=== PATIENT | female | born 1980 | race Caucasian/White ===

== ENCOUNTER 2025-07-25 22:50 | Emergency (ER) | payer BC, MEDICAID, SELFPAY ==
--- OUTSIDE RECORDS SUMMARY | 2025-07-25 23:01 | XMS_ITS | Clinical Summary ---
Author Organization [facility] Address [address] [address] Care Team Providers Care Optical Fabricator Name Role Phone Senait Sandoval MD Primary Care Provider [phone] Allergies Active Allergy Reactions Criticality Noted Date Comments Terbutaline Unknown 08/23/2016 Medications zolpidem (AMBIEN) 10 mg tabletIndication s:Insomnia, unspecified type Take 1 tablet (10 mg total) by mouth nightly as needed for sleep. 30 tablet 2 7 Active Additional Information Patient not taking.Reported on 08/16/2023 hydrOXYzine (VISTARIL) 25 MG capsule Take 25 mg by mouth nightly. 3 Active sertraline (ZOLOFT) 100 MG tablet Take 100 mg by mouth in the morning. 3 Active docusate sodium (COLACE) 100 MG capsule Take by mouth daily. 3 Active Active Problems Problem Noted Date Diagnosed Date Depression 07/10/2017 Assessment & Plan (07/18/2023 10:41 AM DEPUTY MANAGER): Keep follow-up with [facility]. Denies suicidal ideations. Continue current dose of sertraline Insomnia ADD (attention deficit disorder) Heart palpitations Chest wall pain Fatigue Abdominal pain, left upper quadrant Immunizations Immunization Administration Dates Next Due Td (adult) (TDVAX) 03/14/2012 Family History Medical History Relation Name Comments Cancer Father Diabetes Mother Relation Name Status Comments Father Mother Social History Tobacco Use Types Packs/Day Years Used Date Smoking Tobacco: Former Smokeless Tobacco: Never Tobacco Cessation:Counseling Given: Not Answered Alcohol Use Standard Drinks/Week Comments No 0 (1 standard drink = 0.6 oz pur e alcohol) PHQ-2 Answer Date Recorded PHQ-2 Score 0 08/16/2023 Comments No Sex and Gender Information Value Date Recorded Sex Assigned at Not on file Legal Sex Female 8:33 PM CDT Gender Identity Not on file Sexual Orientation Not on file Last Filed Vital Signs Vital Sign Reading Time Taken Comments Blood Pressure 130/87 08/16/2023 8:05 AM DEPUTY MANAGER Pulse 100 08/16/2023 8:05 AM DEPUTY MANAGER Temperature 37.2 C (98.9 F) 08/16/2023 8:05 AM DEPUTY MANAGER Respiratory Rate 18 04/21/2017 1:31 PM CDT Oxygen Saturation 98% 08/16/2023 8:05 AM DEPUTY MANAGER Inhaled Oxygen Concentration - - Weight 69.9 kg (154 lb) 08/16/2023 8:05 AM DEPUTY MANAGER Height 162.6 cm (5' 4 ) 08/16/2023 8:05 AM DEPUTY MANAGER Body Mass Index 26.43 08/16/2023 8:05 AM DEPUTY MANAGER Plan of Treatment Health Maintenance Due Date Last Done Comments Annual Wellness 1980 Varicella Vaccines (1 of 2 - 13+ 2-dose series) 1993 Hepatitis B Vaccines (1 of 3 - 19+ 3-dose series) 12/26/1999 Pap Smear 2001 Mammogram 2020 Td, Tdap Vaccines Adult 03/14/2022 03/14/20 12, 10/23/2011 Influenza Vaccination (#1) 2025 HIB Vaccines Aged Out No longer eligi ble based on patient's age to complete this topic HPV Vaccines (No Doses Required) Completed Hepatitis A Vaccines Aged Out No long er eligible based on patient's age to complete this topic IPV Vaccines Aged Out No longer eligi ble based on patient's age to complete this topic Meningococcal Vaccines Aged Out No lo nger eligible based on patient's age to complete this topic Pneumococcal Vaccine: Pediatrics (0 to 5 Years) and At-Risk Patients (6 to 49 Years) Aged Out No longer eligible b ased on patient's age to complete this topic RSV Mab Nirsevimab (Beyfortu s) <20 months Aged Out No longer eligible b ased on patient's age to complete this topic Rotavirus Vaccines Aged Out No longer eligible based on patient's age to complete this topic Insurance [facility] Care Teams Optical Fabricator Relationship Specialty Start Date End Date Senait Sandoval MD [address] [address] PCP - General Family Medicine 07/03/17
--- OUTSIDE RECORDS SUMMARY | 2025-07-25 23:01 | XMS_ITS | Encounter Summary ---
Author Organization [facility] Address [address] [place] [facility] [address] Care Team Providers Care Mexican Food Machine Tender Name Role Phone Senait Sandoval MD Primary Care Provider Encounter Details Date Type Department Care Team (Late st Contact Info) Description 07/25/2016 Orders Only [facility] Radiology [address] [place] [address] System, Provider Not In, [address] [place] [address] Social History Tobacco Use Types Packs/Day Years Used Date Smoking Tobacco: Never Assessed Comments Unknown Sex and Gender Information Value Date Recorded Sex Assigned at Not on file Legal Sex Female 8:33 PM CDT Gender Identity Not on file Sexual Orientation Not on file documented as of this encounter Plan of Treatment Not on file documented as of this encounter Procedures Procedure Name Priority Date/Time Associated Diagnosis Comments OUTSIDE IMAGES 07/25/2016 1:12 PM SWEATBAND SEPARATOR documented in this encounter Results * Outside Images (07/25/2016 1:12 PM SWEATBAND SEPARATOR) Anatomical Region Laterality Modality N/A Radiographic Rocio ging 07/25/2016 1:12 PM SWEATBAND SEPARATOR Narrative 07/25/2016 1:12 PM SWEATBAND SEPARATOR Historic images from [facility] exist and can be viewed by using the hyperlink to access [employer] pacs: X-Ray, Chest, PA & Lateral Procedure Note System, Provider Not In, - 08/13/2018 Historic images from [facility] exist and can be viewed by using thehyperlink to access [employer] pacs: X-Ray, Chest, PA & Lateral us Provider Not In System MD [facility] Final Result documented in this encounter Visit Diagnoses Not on filedocumented in this encounter Care Teams Mexican Food Machine Tender Relationship Specialty Start Date End Date Senait Sandoval MD [address] [place] [address] PCP - General Family Medicine 07/03/17 documented as of this encounter
--- OUTSIDE RECORDS SUMMARY | 2025-07-25 23:01 | XMS_ITS | Encounter Summary ---
Author Organization [facility] Address [address] [place] [address] Care Team Providers Care Radiotelegraph Operator Servicer Name Role Phone Senait Sandoval MD Primary Care Provider [phone] Encounter Details Date Type Department Care Team (Late st Contact Info) Description 01/28/2019 Orders Only [facility] Radiology [address] [place] [address] System, Provider Not In, [address] [place] [address] Social History Tobacco Use Types Packs/Day Years Used Date Smoking Tobacco: Former Smokeless Tobacco: Never Alcohol Use Standard Drinks/Week Comments No 0 (1 standard drink = 0.6 oz pur e alcohol) Comments No Sex and Gender Information Value Date Recorded Sex Assigned at Not on file Legal Sex Female 8:33 PM CDT Gender Identity Not on file Sexual Orientation Not on file documented as of this encounter Plan of Treatment Not on file documented as of this encounter Procedures Procedure Name Priority Date/Time Associated Diagnosis Comments OUTSIDE IMAGES 01/28/2019 10:06 AM CDT documented in this encounter Results * Outside Images (01/28/2019 10:06 AM CDT) Anatomical Region Laterality Modality N/A Radiographic Rocio ging 01/28/2019 10:0 6 AM CDT Narrative 01/28/2019 10:06 AM CDT Historic images from [facility] exist and can be viewed by using the hyperlink to access [employer] pacs: CT HEAD WO Procedure Note System, Provider Not InMD - 08/31/2020 Historic images from [facility] exist and can be viewed byusing the hyperlink to access [employer] pacs: CT HEAD WO us Provider Not In System MD [facility] Final Result documented in this encounter Visit Diagnoses Not on filedocumented in this encounter Care Teams Radiotelegraph Operator Servicer Relationship Specialty Start Date End Date Senait Sandoval MD [address] [place] [address] [place] [address] PCP - General Family Medicine 07/03/17 documented as of this encounter
--- OUTSIDE RECORDS SUMMARY | 2025-07-25 23:01 | XMS_ITS | Encounter Summary ---
Author Organization [facility] Address [address] [place] [facility] [place] [address] Care Team Providers Care Surgical Scrub Technician Name Role Phone Senait Sandoval MD Primary Care Provider [phone] Encounter Details Date Type Department Care Team (Late st Contact Info) Description 08/31/2015 Orders Only [facility] Radiology [address] [place] [address] System, Provider Not In, [address] [place] [address] Social History Tobacco Use Types Packs/Day Years [...] Priority Date/Time Associated Diagnosis Comments OUTSIDE IMAGES 08/31/2015 8:52 AM MUTUEL CASHIER documented in this encounter Results * Outside Images (08/31/2015 8:52 AM MUTUEL CASHIER) Anatomical Region Laterality Modality N/A Radiographic Rocio ging 08/31/2015 8:52 AM MUTUEL CASHIER Narrative 08/31/2015 8:52 AM MUTUEL CASHIER Historic images from [facility] exist and can be viewed by using the hyperlink to access [employer] pacs: US PELVIC Procedure Note System, Provider Not In - 08/27/2020 Historic images from [facility] exist and can be viewed byusing the hyperlink to access [employer] pacs: US PELVIC us Provider Not In System MD [facility] Final Result documented in this encounter Visit Diagnoses Not on filedocumented in this encounter Care Teams Surgical Scrub Technician Relationship Specialty Start Date End Date Senait Sandoval MD [address] [address] PCP - General Family Medicine 07/03/17 documented as of this encounter
--- OUTSIDE RECORDS SUMMARY | 2025-07-25 23:01 | XMS_ITS | Encounter Summary ---
Author Organization [facility] Address [address] [place] [facility] [place] [address] Care Team Providers Care Military Professional Name Role Phone Senait Sandoval MD Primary Care Provider [phone] Encounter Details Date Type Department Care Team (Late st Contact Info) Description 07/10/2016 Orders Only [facility] Radiology [address] [place] [address] System, Provider Not In, [address] [place] [address] Social History Tobacco Use Types Packs/Day Years [...] Priority Date/Time Associated Diagnosis Comments OUTSIDE IMAGES 07/10/2016 10:12 AM DEPARTMENT STORE DOOR GREETER documented in this encounter Results * Outside Images (07/10/2016 10:12 AM DEPARTMENT STORE DOOR GREETER) Anatomical Region Laterality Modality N/A Radiographic Rocio ging 07/10/2016 10:1 2 AM DEPARTMENT STORE DOOR GREETER Narrative 07/10/2016 10:12 AM DEPARTMENT STORE DOOR GREETER Historic images from [facility] exist and can be viewed by using the hyperlink to access [employer] pacs: X-Ray, Rib, Unilateral Procedure Note System, Provider Not In, - 08/13/2018 Historic images from [facility] exist and can be viewed by using thehyperlink to access [employer] pacs: X-Ray, Rib, Unilateral us Provider Not In System MD [facility] Final Result documented in this encounter Visit Diagnoses Not on filedocumented in this encounter Care Teams Military Professional Relationship Specialty Start Date End Date Senait Sandoval MD [address] [address] PCP - General Family Medicine 07/03/17 documented as of this encounter
--- OUTSIDE RECORDS SUMMARY | 2025-07-25 23:01 | XMS_ITS | Encounter Summary ---
Author Organization [facility] Address [address] [place] [address] Care Team Providers Care Curling Machine Operator Name Role Phone Senait Sandoval MD Primary Care Provider [phone] Encounter Details Date Type Department Care Team (Late st Contact Info) Description 01/28/[address] [facility] Radiology [address] [place] [address] System, Provider Not In, [address] [place] [address] Social History Tobacco Use Types Packs/Day Years [...] Date/Time Associated Diagnosis Comments OUTSIDE IMAGES 01/28/2019 10:12 AM CDT documented in this encounter Results * Outside Images (01/28/2019 10:12 AM CDT) Anatomical Region Laterality Modality N/A Radiographic Rocio ging 01/28/2019 10:1 2 AM CDT Narrative 01/28/2019 10:12 AM CDT Historic images from [facility] exist and can be viewed by using the hyperlink to access [employer] pacs: CT CHEST WO Procedure Note System, Provider Not InMD - 08/31/2020 Historic images from [facility] exist and can be viewed byusing the hyperlink to access [employer] pacs: CT CHEST WO us Provider Not In System MD [facility] Final Result documented in this encounter Visit Diagnoses Not on filedocumented in this encounter Care Teams Curling Machine Operator Relationship Specialty Start Date End Date Senait Sandoval MD [address] [place] [address] [place] [address] PCP - General Family Medicine 07/03/17 documented as of this encounter
--- OUTSIDE RECORDS SUMMARY | 2025-07-25 23:01 | XMS_ITS | Encounter Summary ---
Author Organization [facility] Address [address] [place] [address] Care Team Providers Care Acting Professor Name Role Phone Senait Sandoval MD Primary Care Provider [phone] Encounter Details Date Type Department Care Team (Late st Contact Info) Description 01/28/2019 Orders Only [facility] Radiology [address] [place] [address] System, Provider Not In, [address] [place] [address] Social History Tobacco Use Types Packs/Day Years [...] 01/28/2019 10:06 AM CDT Historic images from [facility] exist and can be viewed by using the hyperlink to access [employer] pacs: CT FACIAL SINUS WO Procedure Note System, Provider Not In, - 08/31/2020 Historic images from [facility] exist and can be viewed byusing the hyperlink to access [employer] pacs: CT FACIAL SINUS WO us Provider Not In System MD [facility] Final Result documented in this encounter Visit Diagnoses Not on filedocumented in this encounter Care Teams Acting Professor Relationship Specialty Start Date End Date Senait Sandoval MD [address] [place] [address] PCP - General Family Medicine 07/03/17 documented as of this encounter
--- OUTSIDE RECORDS SUMMARY | 2025-07-25 23:01 | XMS_ITS | Encounter Summary ---
Author Organization [facility] Address [address] [place] [address] Care Team Providers Care Video Arcade Manager Name Role Phone Senait Sandoval MD Primary Care Provider [phone] Encounter Details Date Type Department Care Team (Late st Contact Info) Description 01/28/2019 Orders Only [facility] Radiology [address] [place] [address] System, Provider Not In, [address] [place] [address] Social History Tobacco Use Types Packs/Day Years [...] Date/Time Associated Diagnosis Comments OUTSIDE IMAGES 01/28/2019 10:05 AM CDT documented in this encounter Results * Outside Images (01/28/2019 10:05 AM CDT) Anatomical Region Laterality Modality N/A Radiographic Rocio ging 01/28/2019 10:0 5 AM CDT Narrative 01/28/2019 10:05 AM CDT Historic images from [facility] exist and can be viewed by using the hyperlink to access [employer] pacs: CR FINGER 3 VIEW Procedure Note System, Provider Not In, - 08/31/2020 Historic images from [facility] exist and can be viewed byusing the hyperlink to access [employer] pacs: CR FINGER 3 VIEW us Provider Not In System MD [facility] Final Result documented in this encounter Visit Diagnoses Not on filedocumented in this encounter Care Teams Video Arcade Manager Relationship Specialty Start Date End Date Senait Sandoval MD [address] [place] [address] [place] [address] PCP - General Family Medicine 07/03/17 documented as of this encounter
[2025-07-25 23:37] VITALS: BP 129/85; PULSE 72; RESP 18; TEMP 36.8; O2SAT 98; BMI 24.7
[2025-07-26 04:46] VITALS: BP 138/58
--- NOTE | 2025-07-26 05:16 | ED_ITS ---
HPI - General Adult 2 General: Chief complaint: Headache Stated complaint: Nerves causing Migranine Time Seen by Provider: 07/26/25 04:33 History of Present Illness: Patient is a 44-year-old female without significant medical history presents with a chief complaint of right low back pain with radiation to the right thigh. Patient states this has been ongoing for about a year. She has not been taking anything for pain. She states that she was seen once, given an anti- inflammatory shot, which temporarily helped but it has returned. She states that she does not recall an inciting injury or trauma. She denies fever. She denies midline back pain. Patient denies chest pain or shortness of breath or painful breathing. No abdominal pain, nausea or vomiting. Patient denies loss of bladder or bowel control. Patient denies saddle anesthesia. No lower extremity weakness. She is ambulatory. She reports occasional tingling and numbness in the sole of the right foot but this is not ongoing right now. Patient states that she also has a history of migraines, states that she feels like her back pain exacerbates her migraines. Patient states that she initially had a headache but it is now mild, feels like a tension band around her head. She has not had any medication for pain tonight. Patient denies drug use, immunocompromise. Related Data Previous Rx's ?Medication ?Instructions ?Recorded ketorolac 10 mg tablet 10 mg PO Q6H PRN pain 5 days #20 07/26/25 tabs methocarbamol 500 mg tablet 1,000 mg (2 x 500 mg) PO T ID PRN 07/26/25 muscle pain and spasm #30 tabs Allergies Allergy/AdvReac Type Severity Reaction Status Date / Time No Known Drug Allergies Allergy Unknown none Verified 07/25/25 23:47 Physical Exam 2 Narrative: EXAM NARRATIVE: Vital signs were reviewed. Patient is alert and oriented. Patient is breathing comfortably, no increased WOB or accessory muscle use. SpO2 is above 95% on RA. Patient has clear lungs b/l, no rhonchi, wheezing or crackles. No hypotension or tachycardia. Abdomen is soft, nondistended and nontender. There is no tenderness with percussion of the flanks. No pain w/palpation of C, T or L spine. Mild pain w/palpation of the R low back musculature. Patient is moving all extremities with full strength, no sensory deficit, no deformity or gross injury. No lower extremity edema or asymmetry. +2 DP and PT pulses. Negative straight leg raise test b/l. Course 2 Vital Signs: Vital signs: Vital Signs Temperature 98.2 F 07/25/25 23:37 Pulse Rate 79 07/26/25 07:04 Respiratory Rate 18 07/25/25 23:37 Blood Pressure 103/49 07/26/25 07:04 Pulse Oximetry 98 07/26/25 07:04 Oxygen Delivery Me thod Room Air 07/26/25 05:40 MDM - General Adult Medical Decision Making 44-year-old female presenting with a chief complaint of right low back pain for 1 year. States that it has previously been improved with 1 injection of anti- inflammatory medication. She denies midline back pain, fever, neurologic deficits such as weakness, paresthesias, saddle anesthesia, loss of bowel or bladder control. No injury or trauma. Differential diagnosis includes, does not want to do, degenerative disc disease, herniated disc, radiculopathy, UTI, kidney stone, sciatica, piriformis syndrome, cauda equina, other. On exam, patient does not have any red flags. She is ambulatory. She was screened with CBC, CMP, lipase, UA and screen. She was treated with IM Toradol, p.o. Tylenol and p.o. Robaxin. Labwork is reassuring. Patient is not . UA not consistent w/UTI. Presentation may be consistent w/pyriformis syndrome and acute on chronic low back pain exacerbation. She is appropriate for outpatient management. Patient was counseled on supportive care at home, given return precautions and discharged in stable condition with recommendation for outpatient follow-up with primary care nurse or doctor. Lab Data 07/26/25 05:10 07/26/25 05:10 Laboratory Results WBC 9.48 10^3/uL (3.29-11.43) 07/26/25 05:10 RBC 3.47 10^6/uL (3.85-5.65) L 07/26/25 05:10 Hgb 11.70 g/dL (11.27-16.99) 07/26/25 05:10 Hct 35.8 % (36-47) L 07/26/25 05:10 MCV 103.2 fl (85-98) H 07/26/25 05:10 MCH 33.7 pg (27-33) H 07/26/25 05:10 MCHC 32.7 g/dL (30-55) 07/26/25 05:10 RDW 12.8 % (12.1-15.1) 07/26/25 05:10 Plt Count 404 10^3/cmm (157-399) H 07/26/25 05:10 MPV 10.3 fL (7.4-10.4) 07/26/25 05:10 Neut % (Auto) 47.3 % 07/26/25 05:10 Lymph % (Auto) 38.8 % 07/26/25 05:10 [facility]cleod % (Auto) 10.9 % 07/26/25 05:10 Eos % (Auto) 2.1 % 07/26/25 05:10 Baso % (Auto) 0.8 % 07/26/25 05:10 Neut # (Auto) 4.48 10^3/uL (1.8-7.7) 07/26/25 05:10 Lymph # (Auto) 3.7 10^3/uL (0.8-4.8) 07/26/25 05:10 Mcleod # (Auto) 1.0 10^3/uL (0.2-0.9) H 07/26/25 05:10 Eos # (Auto) 0.2 10^3/uL (0.0-0.8) 07/26/25 05:10 Baso # (Auto) 0.1 10^3/uL (0.0-0.1) 07/26/25 05:10 Nucleated RBC % (auto) 0 % 07/26/25 05:10 Nucleated RBCs # 0.0 /100WBC 07/26/25 05:10 Sodium 138 mmol/L (136-145) 07/26/25 05:10 Potassium 4.3 mmol/L (3.5-5.1) 07/26/25 05:10 Chloride 101 mmol/L (98-107) 07/26/25 05:10 Carbon Dioxide 23 mmol/L (22-29) 07/26/25 05:10 Anion Gap 18.3 (5-19) 07/26/25 05:10 BUN 13 mg/dL (6-20) 07/26/25 05:10 Creatinine 0.6 mg/dL (0.5-0.9) 07/26/25 05:10 GFR Calculation 108.6 mL/min (90-130) 07/26/25 05:10 Glucose 91 mg/dL (65-115) 07/26/25 05:10 Calculated Osmolality 286 mOsm/kg (285-295) 07/26/25 05:10 Calcium 9.7 mg/dL (8.5-10.5) 07/26/25 05:10 Total Bilirubin 0.2 mg/dL (0.15-1.2) 07/26/25 05:10 AST 23 U/L (0-32) 07/26/25 05:10 ALT 17 U/L (0-33) 07/26/25 05:10 Alkaline Phosphatase 68 U/L (35-105) 07/26/25 05:10 Total Protein 6.2 g/dL (6.6-8.7) L 07/26/25 05:10 Albumin 4.2 g/dL (3.5-5.2) 07/26/25 05:10 Globulin 2.0 g/dL (1.3-4.6) 07/26/25 05:10 Lipase 31 U/L (13-60) 07/26/25 05:10 Ser , Semi-Qnt < 1.00 mIU/mL 07/26/25 05:10 Urine Color Yellow (Yellow) 07/25/25 23:59 Urine Appearance Clear (CLEAR) 07/25/25 23:59 Urine pH 5.5 (5-7) 07/25/25 23:59 Ur Specific [place] 1.003 (1.005-1.030) L 07/25/25 23:59 Urine Protein Negative (Negative) 07/25/25 23:59 Urine Glucose (UA) Negative (Normal) 07/25/25 23:59 Urine Ketones Negative (Negative) 07/25/25 23:59 Urine Blood Negative (Negative) 07/25/25 23:59 Urine Nitrate Negative (Negative) 07/25/25 23:59 Urine Bilirubin Negative (Negative) 07/25/25 23:59 Urine Urobilinogen 0.2 mg/dL (Negative) 07/25/25 23:59 Ur Leukocyte Esterase Negative (Negative) 07/25/25 23:59 Urine RBC 0-2 /hpf (0-2) 07/25/25 23:59 Urine WBC 0-5 /hpf (0-5) 07/25/25 23:59 Ur Squamous Epith Cells 0-5 /hpf (0-5) 07/25/25 23:59 Amorphous Sediment Not Reportable 07/25/25 23:59 Urine Bacteria None seen /hpf (NONE) 07/25/25 23:59 Hyaline Casts 0-4 /lpf H 07/25/25 23:59 No radiology studies performed this visit Discharge Plan Discharge Patient Disposition: Home Clinical Impression: Acute tension headache Qualifiers: Intractability: not intractable Qualified Code(s): G44.209 - Tension-type headache, unspecified, not intractable Pyriformis syndrome Qualifiers: Laterality: right Qualified Code(s): G57.01 - Lesion of sciatic nerve, right lower limb Chronic low back pain without sciatica Qualifiers: Back pain laterality: right Qualified Code(s): M54.50 - Low back pain, unspecified Condition: Stable Prescriptions: New ketorolac 10 mg tablet 10 mg PO Q6H PRN (Reason: pain) 5 Days Qty: 20 0RF methocarbamol 500 mg tablet 1,000 mg PO TID PRN (Reason: muscle pain and spasm) Qty: 30 0RF Discharge Orders: Discharge ED (Routine); Ordered 07/26/25 Ordered By: Opal Deal Patient Instructions: Tension Headache, Chronic Back Pain (DC), Lower Back Exercises (ED), Opioid Safety, Pain Management, Patient Portal & Dileep Instructions Activity Restrictions/Additional Instructions: Please continue to monitor your condition closely at home. Take Toradol 10mg and Tylenol 500-1000mg every six hours for pain and inflammation. You may try Robaxin for muscle pain and spasm. If your condition worsens or additional concerns arise, please return promptly to the emergency department for reassessment. Follow up with your primary care doctor in one week. You may benefit from physical therapy or back strengthening exercises to help heal and prevent your back pain. Print Language: Belizean Coding Level of Care Code ED Associate Professor Of Violin for Jd Eubanks
[2025-07-26 05:26] LABS: Glucose Urine UA Negative (Normal); Nitrate Urine Negative (Negative); Specific Gravity, Urine 1.003 (1.005-1.030)
[2025-07-26 05:28] LABS: Add Urine Microscopic? YES
[2025-07-26 05:33] LABS: Hematocrit 35.8 % (36-47); Hemoglobin 11.70 g/dL (11.27-16.99); Mean Corpuscular HGB Conc 32.7 g/dL (30-55); Mean Corpuscular Hemoglobin 33.7 pg (27-33); Mean Corpuscular Volume 103.2 fl (85-98); Nucleated Red Blood Cells % 0 %; Platelet Count 404 10^3/cmm (157-399); Red Blood Count 3.47 10^6/uL (3.85-5.65); White Blood Count 9.48 10^3/uL (3.29-11.43)
[2025-07-26 05:40] VITALS: BP 102/50; PULSE 62; O2SAT 97
[2025-07-26 06:02] LABS: Alanine Aminotransferase 17 U/L (0-33); Albumin Level 4.2 g/dL (3.5-5.2); Alkaline Phosphatase 68 U/L (35-105); Aspartate Amino Transferase 23 U/L (0-32); Blood Urea Nitrogen 13 mg/dL (6-20); Calcium 9.7 mg/dL (8.5-10.5); Carbon Dioxide 23 mmol/L (22-29); Chloride 101 mmol/L (98-107); Globulin 2.0 g/dL (1.3-4.6); Glucose 91 mg/dL (65-115); Lipase 31 U/L (13-60); Osmolality Calculated 286 mOsm/kg (285-295); Sodium 138 mmol/L (136-145); Total Protein 6.2 g/dL (6.6-8.7)
[2025-07-26 06:07] LABS: Anion Gap 18.3 (5-19); Potassium 4.3 mmol/L (3.5-5.1)
[2025-07-26 07:03] VITALS: BP 103/49; PULSE 67
[2025-07-26 07:04] VITALS: BP 103/49; PULSE 79; O2SAT 98
== END 2025-07-26 07:07 | disposition home or self-care (01) ==
PROVIDERS: Emergency Provider Emergency Medicine
DX: G44.209 Tension-type headache, unspecified, not intractable (principal); G57.01 Lesion of sciatic nerve, right lower limb; M54.50 Low back pain, unspecified
CPT/HCPCS: 80053; 81001; 83690; 84702; 85025; 99284; J1885; J9999

== ENCOUNTER → 2025-07-27 13:35 | Outpatient (BNVA) | payer BC, MEDICAID, SELFPAY | PROVIDERS: PCP Nurse Practitioner Family; Visit Provider Nurse Practitioner Family | DX: Z00.00 Encounter for general adult medical examination without abnormal findings (principal); F41.1 Generalized anxiety disorder | CPT/HCPCS: 80053; 80061; 82607; 82652; 83036; 84443; 85025 ==